=== PATIENT | male | born 1960 | race Caucasian/White ===

== ENCOUNTER 2021-03-25 14:53 | Emergency (ER) | payer OTHER, SELFPAY ==
--- NOTE | ~2021-03-25 | XR_ITS ---
EXAMINATION: XR SHOULDER, RIGHT CLINICAL INFORMATION: Fall, trauma, pain COMPARISON: None TECHNIQUE: The right shoulder is imaged in 3 views. FINDINGS: There is no fracture or dislocation. The acromioclavicular alignment is normal. The glenohumeral joint appears normal. There may be punctate calcific tendinosis particle in the region of the distal supraspinatus tendon. No erosive change. The right lung apex is clear and shows no pneumothorax or pleural reaction. XR/XR shoulder RT min 2V IMPRESSION: No fracture or dislocation.
[2021-03-25 15:17] VITALS: BP 162/82; PULSE 83; RESP 18; TEMP 36.4; O2SAT 95; BMI 34.4
--- NOTE | 2021-03-25 17:07 | ED.FALL ---
HPI - Fall General Chief Complaint: Fall Stated Complaint: rt shoulder injury - fall Time Seen by Provider: 03/25/21 16:58 Source: patient Mode of arrival: ambulatory Limitations: no limitations History of Present Illness HPI Narrative: Patient comes emergency room complaining of right shoulder pain. Patient states that [place], slipped on some wet rocks, landed on his right shoulder. Patient heard something crack. Patient states that he is able to abduct his arm all the way up but hurts doing so. Patient denies pain in his wrist or in the elbow, no neck pain. Patient did not hit his head, not on blood thinners. Patient denies neck pain. Related Data Allergies Allergy/AdvReac Type Severity Reaction Status Date / Time aspirin [ASA] Allergy Rash Verified 03/25/21 15:17 bee pollen [bee stings] Allergy Swelling Verified 03/25/21 15:17 Penicillins Allergy Rash Verified 03/25/21 15:17 Review of Systems Review of Systems: Constitutional : No Weight loss, No Fever, No Chills, No Night Sweats, No Fatigue, No Malaise ENT/Mouth : No Hearing loss, No Ear Pain, No Nasal Congestion, No Sinus Pain, No Hoarseness, No sore throat, No Rhinorrhea, No Swallowing Difficulty Eyes: No Eye Pain, No Swelling, No Redness, No Foreign Body, No Discharge, No Vision Changes Cardiovascular : No Chest Pain, No SOB, No Dyspnea on Exertion, No Orthopnea, No Edema, No Palpitations Respiratory : No Cough, No Sputum, No Wheezing, No Smoke Exposure, No Dyspnea Gastrointestinal : No Nausea, No Vomiting, No Diarrhea, No Constipation, No abdominal Pain, No Hematochezia, No Melena Genitourinary : no irregular bleeding, No Dysuria, No Urinary Frequency, No Hematuria, No Urinary Incontinence, No Urgency, No Flank Pain, No Urinary Flow Changes, No Hesitancy Musculoskeletal : Complaining of right shoulder pain, No Myalgias, No Joint Swelling Skin : No Skin Lesions, No rash Neuro : No Weakness, No Numbness, No Paresthesias, No Loss of Consciousness, No Dizziness, No Headache Psych : No Anxiety/Panic, No Depression, No SI/HI/AH/VH, No Social Issues, Heme/Lymph: No Bruising, No Bleeding,No Lymphadenopathy Endocrine : No Polyuria, No Polydipsia, No Temperature Intolerance PMFSH Social History Social History Advance Directives: No Advance Directives Information Provided: No Physical Exam Vital Signs: Vital Signs: Last Vital Signs Temp 97.6 F 03/25/21 15:17 Pulse 83 03/25/21 15:17 Resp 18 03/25/21 15:17 BP 162/82 H 03/25/21 15:17 Pulse Ox 95 03/25/21 15:17 Body Mass Index 34.4 Const: Other: Appearance: Alert. Oriented X3. No acute distress. Eyes: Pupils equal, round and reactive to light. ENT: Pharynx normal. Neck: Normal inspection. Neck supple. No lymph nodes noted. No crepitus CVS: Normal heart rate and rhythm. Pulses normal. Normal S1 and S2 Respiratory: No respiratory distress. Breath sounds normal. No Wheezing. No rales Abdomen: Soft and nontender. No rigidity. No distention. good BS x4 Skin: Skin warm and dry. Normal skin color. Normal skin turgor. Extremities: No lower extremity edema. Patient is able to abduct the right arm to 180 degrees, but only with active movement, passively patient can abduct to approximately 45 degrees. Neuro: Oriented X 3. No motor deficit. No sensory deficit. Moving all extermities. No slurred speech. Course Course Course Narrative: I discussed the x-ray with the patient, no acute findings. However, it is possible the patient may have ligament injuries. I discussed with the patient that for the next 48 hours he can use a sling, ibuprofen/Tylenol for pain relief. To early range of motion exercises with the shoulder but not to push to pain. If patient does not improve in the next 3 days, patient may need an MRI. Patient declined prescription for narcotics. MDM - Fall Imaging Data Shoulder x-ray: Radiologist's impression: There is no fracture or dislocation. The acromioclavicular alignment is normal. The glenohumeral joint appears normal. There may be punctate calcific tendinosis particle in the region of the distal supraspinatus tendon. No erosive change. The right lung apex is clear and shows no pneumothorax or pleural reaction.? XR/XR shoulder RT min 2V IMPRESSION: No fracture or dislocation. Discharge Plan Discharge Clinical Impression: Contusion of right shoulder Qualifiers: Encounter type: initial encounter Qualified Code(s): S40.011A - Contusion of right shoulder, initial encounter Patient Disposition: Home, Self-Care Instructions: Shoulder Pain (ED) Additional Instructions: Please follow-up with your primary care physician tomorrow. If you have any worsening or new symptoms, please return to the emergency room or call 911
== END 2021-03-25 18:07 | disposition home or self-care (01) ==
PROVIDERS: Emergency Provider Emergency Medicine; PCP Internal Medicine
DX: S40.011A Contusion of right shoulder, initial encounter (principal); W18.31XA Fall on same level due to stepping on an object, initial encounter; Y93.89 Activity, other specified; Y92.828 Other wilderness area as the place of occurrence of the external cause; Y99.9 Unspecified external cause status
CPT/HCPCS: 73030; 99282; 99283